=== PATIENT | male | born 1955 | race Caucasian/White ===

== ENCOUNTER 2022-07-09 10:15 | Outpatient (CLI) | payer MEDICARE | END 2022-07-09 10:16 | disposition home or self-care (01) | LOC: PET 10:15 | PROVIDERS: ATTEND Physician Assistant | DX: C43.30 Malignant melanoma of unspecified part of face (principal) | CPT/HCPCS: 78816; A9552 ==

== ENCOUNTER → 2023-11-11 | Outpatient (CLI) | payer MEDICARE | LOC: PET 10:15 | PROVIDERS: ATTEND Specialist | DX: C43.30 Malignant melanoma of unspecified part of face (principal) | CPT/HCPCS: 78816; A9552 ==

== ENCOUNTER 2025-04-07 11:19 | Outpatient (CLI) | payer MEDICARE | END 2025-04-07 11:20 | disposition home or self-care (01) | LOC: SCSRAD 11:19 | PROVIDERS: ATTEND Family Medicine | DX: M25.511 Pain in right shoulder (principal) ==